=== PATIENT | male | born 1965 | race Caucasian/White ===

== ENCOUNTER 2020-11-09 16:50 | Outpatient (CLI) | payer OTHER, SELFPAY ==
--- NOTE | 2020-11-09 17:06 | XR_ITS ---
WS: [id number] Exam: [place] [id number] Date/Time of Exam: 11/09/2020 5:06 PM Reason For Exam: PRE MRI SCREENING The orbits are intact bilaterally. No sign of radiopaque foreign body in the region of the orbits. Th e facial sinuses are clear. XR/[place] [id number] IMPRESSION: 1. No sign of radiopaque foreign body in the region of the orbits. Normal exam.
== END 2020-11-09 16:51 | disposition home or self-care (01) ==
LOC: RADWPI 16:53 → RAD 16:56
PROVIDERS: PCP Family Medicine; Visit Provider Family Medicine
DX: M25.562 Pain in left knee (principal)
CPT/HCPCS: 70200

== ENCOUNTER 2020-11-10 06:52 | Outpatient (CLI) | payer OTHER, SELFPAY ==
--- NOTE | 2020-11-10 | MR_ITS ---
WS: [id number] MRI LEFT KNEE HISTORY: LT KNEE PAIN COMPARISON: None available. Anterior cruciate ligament: Very mild thinning of the ligament. No tear identified. Posterior cruciate ligament: Intact. Medial collateral ligament: Intact. Posterior lateral corner structures: Intact. Medial menisci: Mild fissuring and irregularity involving the surface of the medial posterior meniscu s and intrasubstance degeneration. Seen in the far medial body of the meniscus is linear increased T2 signal. This is only seen on one sequence therefore cannot confirm tear, suspicious for radial tear in the periphery. Lateral meniscus: Intact. Normal signal, size and shape. Extensor mechanism: Distal quadriceps tendon and patellar tendons are intact. Fluid and soft tissue: No joint effusion. No Berger's cyst. Osseous and articular structures: Patellofemoral compartment: Normal. Medial compartment: Mild narrowing of the medial compartment. 10 mm defect within the cartilage of th e femoral condyle towards the intercondylar notch. There are additional areas of thinning and fissuri ng in the cartilage of the tibial plateau and femoral condyle. Signal abnormality within the cartilag e corresponds to the abnormal signal in the posterior horn of the medial meniscus. Small amount of baxter bchondral edema in the anterior medial femoral condyle. Lateral compartment: Focal cartilaginous defect in the femoral condyle towards the intercondylar notc h. No marrow edema or fracture. MR/MR knee LT wo con* [id number] IMPRESSION: 1. Abnormal signal in the posterior horn medial meniscus may be fissuring or d ue to superficial tear. Disc area of abnormal signal in the meniscus correspond s to a 10 mm cartilage defect in the medial femoral condyle. 2. Additional focal cartilage defect in the lateral femoral condyle towards th e intercondylar notch. 3. Mild narrowing of the medial compartment joint space. 4. Suspicious but indeterminate for radial tear body of the medial meniscus.
== END 2020-11-10 06:53 | disposition home or self-care (01) ==
PROVIDERS: PCP Family Medicine; Visit Provider Family Medicine
DX: M25.562 Pain in left knee (principal)
CPT/HCPCS: 73721

== ENCOUNTER → 2020-12-02 10:48 | Outpatient (BNVA) | payer OTHER, SELFPAY | PROVIDERS: PCP Family Medicine; Referring Provider Family Medicine; Visit Provider Specialist | DX: M25.569 Pain in unspecified knee (principal); M17.0 Bilateral primary osteoarthritis of knee | CPT/HCPCS: 73560; 73565 ==

== ENCOUNTER 2021-04-18 17:04 | Outpatient (CLI) | payer OTHER, SELFPAY ==
--- NOTE | 2021-04-18 17:30 | MR_ITS ---
WS: [id number] MRI LEFT KNEE HISTORY: Twisting injury LEFT knee June 2020. COMPARISON: 11/10/2020 Anterior cruciate ligament: Intact. Posterior cruciate ligament: Intact. Medial collateral ligament: Intact. Posterior lateral corner structures: Small amount of fluid along the popliteus tendon. This is simila r to the prior study. Medial menisci: Very slight blunting of the free edge posterior horn medial meniscus towards the meni scal root. Again noted is the vertical increased signal in the body of the lateral meniscus. Seen bes t on the coronal images but only seen on one view and suspicious for radial tear. Lateral meniscus: Intact. Normal signal, size and shape. Extensor mechanism: Distal quadriceps tendon and patellar tendons are intact. Fluid and soft tissue: No joint effusion. No Berger's cyst. Osseous and articular structures: Patellofemoral compartment: Normal. Medial compartment: Mild narrowing of the medial compartment with small osteophytes at the joint line . Abnormal signal within the weightbearing surface of the medial femoral condyle cartilage towards th e intercondylar notch measures 11 mm. Similar to the prior study. This is a full-thickness cartilage defect but no underlying marrow edema. Mild progression of joint space narrowing since the prior stud y. Additional moderate diffuse loss of cartilage. Interval development of marrow edema involving the anterior medial femoral condyle and also the tibial plateau. Marrow edema seen on the prior examinati on in the more central femoral condyle has resolved. Lateral compartment: Mild narrowing of the lateral compartment. Numerous small fissures within the ca rtilage along the tibial plateau and the femoral condyle. No marrow edema. MR/MR knee LT wo con* [id number] IMPRESSION: 1. New marrow edema in the medial femoral condyle and tibial plateau with mild progression of joint space narrowing and loss of cartilage. 2. Additional more focal 11 mm osteochondral lesion along the weightbearing baxter rface medial femoral condyle towards the intercondylar notch is similar to the prior study. 3. Again suspicious for radial tear towards the body of the lateral meniscus. Seen best on the coronal images and only on one view therefore cannot confirm t his is compared. 4. Mild diffuse fissuring of the cartilage in the lateral compartment is carlton lar to the prior study.
== END 2021-04-18 17:05 | disposition home or self-care (01) ==
PROVIDERS: PCP Family Medicine; Visit Provider Specialist
DX: M25.562 Pain in left knee (principal); R60.0 Localized edema
CPT/HCPCS: 73721

== ENCOUNTER → 2021-06-08 09:15 | Outpatient (BNVA) | payer OTHER, SELFPAY | PROVIDERS: PCP Family Medicine; Visit Provider Specialist | DX: Z20.822 Contact with and (suspected) exposure to COVID-19 (principal) | CPT/HCPCS: 87635 ==

== ENCOUNTER 2021-06-14 05:37 | Day surgery (SDC) | payer OTHER, SELFPAY ==
[2021-06-13 16:48] VITALS: BMI 39.1
[2021-06-14] VITALS (8 sets, daily range): BP systolic 135–157; BP diastolic 89–97; PULSE 71–81; RESP 12–21; TEMP 36.4–36.8; O2SAT 95–100
--- NOTE | 2021-06-14 06:38 | ANES.PREANE2 ---
Pre-Anesthetic Assessment Pre-Anesthetic Assessment: Height/Weight: Height 1.7 m Weight 113.398 kg Temp Pulse Resp BP Pulse Ox 98.2 F 73 18 148/89 95 06/14/21 06:09 06/14/21 06:09 06/14/21 06:09 06/14/21 06:09 06/14/21 06:09 Preop Diagnosis: Left knee medial and no meniscal tears Proposed Procedure: Operation Date: 06/14/21 07:00 Proposed Procedures p Knee Arthroscopy w/ Partial Menesectomy 91251 S83.209A(Left) - Luci Otero MD Was Beta Titi taken within 24 hours: N/A Was Clonidine taken within 24 hours: N/A Last intake: Intake Last Liquid Date 06/13/21 Last Liquid Time 23:00 Last Solid Date 06/13/21 Last Solid Time 23:00 Social: Social History: No alcohol and No tobacco Pulmonary: Comments: 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 MET = or greater than 4 : : None reported Hepatic: Hepatic: None reported GI: GI: GERD Metabolic: Metabolic: None reported Musc/skel: Musc/skel: None reported Neuropsych: Neuropsych: None reported Anesthetic Plan: ASA status: 2 Anesthesia: Anesthesia Evaluation Risk of > 500 ml blood loss (7ml/kg in children): No Data Anesthesia Cardiac Studies: No Data to Display
[2021-06-14] MEDS: CELEcoxib 200 mg Capsule 400 MG PO (06:47)
[2021-06-14] MEDS: acetaminophen 1,000 MG/100 ML PIGGYBACK 400 MG IV (06:47)
[2021-06-14] MEDS: sodium chloride 0.9% 1,000 ML 30 ML IV (06:48)
--- NOTE | 2021-06-14 06:54 | P.HPUD_ITS ---
Surgery/Procedure H&P Update DATE OF PROCEDURE: June 14, 2021 DATE H&P PERFORMED: 05/30/21 H&P UPDATE INFORMATION: I have reviewed H&P completed within last 30 days, I have examined patient prior to procedure, No changes to prior documentation and H&P is in [facility] [place] [place] EMR on date indicated PREOP DIAGNOSIS: Left knee medial and no meniscal tears PLANNED PROCEDURE: Operation Date: 06/14/21 07:00 Proposed Procedures p Knee Arthroscopy w/ Partial Menesectomy 04175 S83.209A(Left) - Luci Otero MD Related Problem List Diagnoses (1) Tear of lateral meniscus of left knee: Qualifiers: Tear current or old: current Encounter type: subsequent encounter Meniscus tear of knee type: other type Qualified Code(s): S83.282D - Other tear of lateral meniscus, current injury, left knee, subsequent encounter (2) Tear of medial meniscus of left knee: Qualifiers: Tear current or old: unspecified Encounter type: initial encounter Meniscus tear of knee type: unspecified type Qualified Code(s): S83.242A - Other tear of medial meniscus, current injury, left knee, initial encounter
[2021-06-14] MEDS: clindamycin 600 MG/50 ML PREMIX 100 MG IV (07:04)
[2021-06-14 07:06] LABS: Basophils # 0.1 10^3/uL (0.0-0.1); Eosinophils # 0.6 10^3/uL (0.0-0.8); Eosinophils % 10.3 %; Hematocrit 44.6 % (42.0-52.0); Hemoglobin 15.3 g/dL (11.7-16.6); Lymphocytes % 34.3 %; Mean Corpuscular HGB Conc 34.3 g/dL (30.0-36.0); Mean Corpuscular Hemoglobin 31.4 pg (28.0-34.0); Mean Corpuscular Volume 91.4 fl (80-94); Mean Platelet Volume 10.4 fL (7.4-10.4); Monocytes # 0.7 10^3/uL (0.2-0.9); Monocytes % 11.4 %; Neutrophils # 2.53 10^3/uL (1.8-7.7); Neutrophils % 42.7 %; Nucleated Red Blood Cells % 0 %; Platelet Count 185 10^3/cmm (130-400); Red Blood Count 4.88 10^6/uL (4.1-5.3); White Blood Count 5.9 10^3/uL (4.0-10.0)
[2021-06-14 07:24] LABS: Alanine Aminotransferase 26 U/L (0-41); Albumin Level 4.1 g/dL (3.5-5.2); Alkaline Phosphatase 47 IU/L (40-130); Anion Gap 14.4 (5-19); Aspartate Amino Transferase 19 U/L (0-40); Blood Urea Nitrogen 19 mg/dL (6-20); Calcium 8.8 mg/dL (8.5-10.5); Carbon Dioxide 23 mmol/L (22-29); Chloride 106 mmol/L (98-107); Creatinine Clr Calc Pharmacy 123.9863; Globulin 2.4 g/dL (1.3-4.6); Glucose 93 mg/dL (65-115); Osmolality Calculated 290 mOsm/kg (285-295); Potassium 4.4 mmol/L (3.5-5.1); Sodium 139 mmol/L (136-145); Total Bilirubin 0.3 mg/dL (0.15-1.2); Total Protein 6.5 g/dL (6.6-8.7)
[2021-06-14] MEDS: morphine 4 mg/mL SDV 1 mL 8 MG XX (07:54)
--- NOTE | 2021-06-14 08:46 | PM.OP ---
Operative Report Date of procedure: June 14, 2021 Pre-op Diagnosis: Left knee medial & lateral meniscal tears with degenerative osteoarthritis Pre-op Diagnosis: Loose body Post-op Diagnosis: Medial and lateral meniscal meniscal tears with loose body and degenerative osteoarthritic change Post-op Findings: Significant osteoarthritic change with loose body and medial and lateral meniscal tears Procedure Done: Left arthroscopic knee surgery with partial medial and lateral meniscectomies, removal of loose body, chondroplasty medial femoral condyle and lateral tibial plateau. 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 The patient was found to have a posterior horn medial meniscal tear, but after discussion, we elected to proceed with nonsurgical treatments. The patient continued to work, but the knee became more more problematic for him over time. After further discussion, we agreed to proceed with arthroscopic intervention. The patient was therefore scheduled for the above procedure. Risks and complications were discussed with him preoperatively, consents were signed, and questions were answered. Procedure: Patient was brought to the operating theater, and after undergoing adequate general anesthesia per LMA, ASA 3,, the patient's left lower extremity was prepped and draped in usual fashion utilizing DuraPrep. A tourniquet was placed high on the leg prior to prepping and draping. The tourniquet was elevated prior to commencement of the surgical procedure to 250 mmHg. Total tourniquet time was 57 minutes. Elevation followed prepping and exsanguination. Prior to commencement of the surgical procedure, a surgical pause was performed. At the time of the surgical pause, we identified the site and side of surgery. We also confirm the patient's identity and appropriate and timely administration of preoperative antibiotic, clindamycin 600 mg. Preoperative surgical markings were also visualized at this time. Standard arthroscopic portals were utilized including superolateral, inferomedial, and inferolateral portals. The examination commenced in the suprapatellar pouch area where the patient was noted to have significant synovitis. The arthroscope was then passed in the medial compartment where there was noted to be complex tearing of the posterior half of the medial meniscus. There was also very significant chondromalacia including, grade 4, of the medial femoral condyle. The arthroscope was then passed across the notch area where anterior cruciate ligament was visualized and found to be intact. The scope was passed into the lateral compartment with the knee in a [id number] position. Lateral meniscus was noted to have tearing of the inner rim of the meniscus. Also, while in the lateral compartment, there was noted to be a large loose body consistent with a fractured cartilaginous fragment. The loose body was removed with a combination of shaving and subsequent excision of a large piece utilizing a grasper. The meniscus was addressed with a shaver and subsequently a heat wand as well. Once lateral meniscus had been thus prepared it was palpated and found to be intact and not displaceable into the knee joint. Scope was then returned to the medial compartment where a combination of basket forceps, the intra-articular shaver, and the heat wand were used to address the complex tear of the medial meniscus. Additionally, chondroplasty was performed of the medial femoral condyle utilizing the shaver and heat wand. The meniscus was palpated and found to be not displaceable into the knee joint. The arthroscope was then returned to the patellofemoral joint where a synovectomy was performed. No further loose bodies were identified. Once the patellofemoral joint had been addressed, the scope was passed back through the knee compartments to evaluate for other abnormalities. Finding none, attention was directed to closure. The knee was copiously irrigated and suctioned dry. Following this, each portal was closed with a simple suture followed by Dermabond and Tegaderm. Additionally, the knee was injected with 20 mL of half percent ropivacaine and 8 mg of morphine. Additional 10 mL of ropivacaine was placed about the portals. Sterile dressing was placed consisting of Dermabond, Steri-Strips, OpSite, and sterile soft roll followed by the Geovanny wrap. Patient was returned to Recovery Room in satisfactory condition where he will be discharged home to follow-up with me in the office as scheduled. There were no complications and no specimens. Associated Problem List Diagnoses (1) Tear of lateral meniscus of left knee: Qualifiers: Encounter type: subsequent encounter Meniscus tear of knee type: other type Tear current or old: current Qualified Code(s): S83.282D - Other tear of lateral meniscus, current injury, left knee, subsequent encounter (2) Tear of medial meniscus of left knee: Qualifiers: Encounter type: initial encounter Meniscus tear of knee type: unspecified type Tear current or old: unspecified Qualified Code(s): S83.242A - Other tear of medial meniscus, current injury, left knee, initial encounter (3) Primary osteoarthritis of left knee:
[2021-06-14] MEDS: fentaNYL 50 mcg/mL INJ 2mL IVP ×2 (08:53→08:58)
[2021-06-14] MEDS: HYDROcodone-acetaminophen 5-325 mg Tablet 1 TAB PO (09:35)
[2021-06-14] MEDS: ondansetron 2 mg/ML SDV 2 mL 4 MG IVP (09:44)
--- NOTE | 2021-06-14 12:23 | ANE.PACU2 ---
Inpatient post-anesthesia follow up: Airway intact: Yes Vital signs: Temperature 97.7 F Pulse Rate 81 Respiratory Rate 14 Blood Pressure 157/95 Pulse Oximetry 97 Oxygen Delivery Me thod Room Air Oxygen Flow Rate 8 Fraction of Inspir ed Oxygen Hydration adequate: Yes Nausea and vomiting: No Pain level: 3 Mental status: Baseline
== END 2021-06-14 10:15 | disposition home or self-care (01) ==
PROVIDERS: PCP Family Medicine; Visit Provider Specialist
PROC: (CPT 29870; principal; 2021-06-14 07:00)
DX: S83.282A Other tear of lateral meniscus, current injury, left knee, initial encounter (principal); S83.242A Other tear of medial meniscus, current injury, left knee, initial encounter; M17.12 Unilateral primary osteoarthritis, left knee; X58.XXXA Exposure to other specified factors, initial encounter; I10 Essential (primary) hypertension; K21.9 Gastro-esophageal reflux disease without esophagitis
CPT/HCPCS: 29881; 36415; 80053; 85025; J1100; J1885; J2270; J2405; J2704; J2795; J3010; J3490; J7030